=== PATIENT | male | born 1980 | race Caucasian/White ===

== ENCOUNTER 2021-07-18 13:15 | Emergency (ER) | payer OTHER ==
[2021-07-18 13:30] VITALS: TEMP 98.4
[2021-07-18] MEDS ORDERED: KETOROLAC 15 MG/ML 1 ML VIAL IVP STA (13:56)
[2021-07-18] MEDS ORDERED: diphenhydrAMINE 50 MG/ML 1 ML VIAL IVP STA (13:56)
[2021-07-18] MEDS ORDERED: SODIUM CHLORIDE 0.9% 1,000 ML IV STA ×2 (13:56→15:09)
[2021-07-18] MEDS ORDERED: METOCLOPRAMIDE 5 MG/ML 2 ML VIAL IVP STA (13:56)
[2021-07-18 14:28] LABS: Basophils % (A) 1 %; Eosinophils # (A) 0.1 k/uL (0-0.7); Eosinophils % (A) 1 %; HCT 47.1 % (39.0-53.0); HGB 15.9 gm/dL (13.0-17.5); Lymphocytes # (A) 1.6 k/uL (1.0-4.8); Lymphocytes % (A) 18 %; MCH 34.8 pg (25.0-35.0); MCHC 33.8 g/dL (31.0-37.0); MCV 102.8 fL (80.0-100.0); Mean Platelet Volume 7.2; Monocytes # (A) 0.4 k/uL (0-1.0); Monocytes % (A) 4 %; Neutrophils # (A) 6.7 k/uL (1.3-7.7); Neutrophils % (A) 75 %; Platelet Count 319 k/uL (150-450); RBC 4.58 m/uL (4.30-5.90); RDW 11.5 % (11.5-15.5); WBC 8.9 k/uL (3.8-10.6)
[2021-07-18 14:43] VITALS: RESP 18
[2021-07-18 14:43] LABS: Appearance,Urine Clear (Clear); Bilirubin,Urine Negative (Negative); Blood,Urine Negative (Negative); Color,Urine Yellow; Glucose,Urine (UA) Negative (Negative); Hyaline Casts,Urine 3 /lpf (0-2); Ketones,Urine Trace (Negative); Leukocyte Esterase,Urine Negative (Negative); Mucus,Urine Many /hpf; Nitrite,Urine Negative (Negative); Protein,Urine 1+ (Negative); RBC,Urine <1 /hpf (0-5); Specific Gravity,Urine 1.035 (1.001-1.035); Squamous Epithelial Cell,Urine <1 /hpf (0-4); Urobilinogen,Urine <2.0 mg/dL (<2.0); WBC,Urine 1 /hpf (0-5)
[2021-07-18 14:51] LABS: INR 0.9 (<1.2); Partial Thromboplastin Time 25.3 sec (22.0-30.0); Prothrombin Time 10.1 sec (9.0-12.0)
[2021-07-18 14:52] LABS: ALT 66 U/L (4-49); AST 60 U/L (17-59); African American GFR (CKD) >90 (>60 ml/min/1.73 sqM); Albumin 4.7 g/dL (3.5-5.0); Alkaline Phosphatase 93 U/L (38-126); Amylase 46 U/L (30-110); Anion Gap 11 mmol/L; Blood Urea Nitrogen 18 mg/dL (9-20); Carbon Dioxide 26 mmol/L (22-30); Chloride 100 mmol/L (98-107); Glucose 145 mg/dL (74-99); Lipase 75 U/L (23-300); Non-African American GFR(CKD) >90 (>60 ml/min/1.73 sqM); Potassium 4.2 mmol/L (3.5-5.1); Sodium 137 mmol/L (137-145); Total Bilirubin 1.1 mg/dL (0.2-1.3); Total Protein 8.3 g/dL (6.3-8.2)
--- NOTE | 2021-07-18 15:03 | CT ---
EXAMINATION TYPE: CT abdomen pelvis w con DATE OF EXAM: 07/18/2021 COMPARISON: None. HISTORY: Abdominal pain umbilical for one month increasing in severity last [address] DLP: 1612.4 mGycm, Automated Exposure Control for Dose Reduction was Utilized. CONTRAST: CT scan of the abdomen and pelvis is performed without oral and with IV Contrast, patient injected wi th 100 ml mL of Isovue 300. FINDINGS: LUNG BASES: No significant abnormality is appreciated. LIVER/GB: Gallstone in gallbladder neck could reflect small calcified gallstone or larger soft tissue density stone with central calcification. Gallbladder has some distended margins. No abnormal wall t hickening or surrounding inflammatory change. The liver is heterogeneously hypodense suggesting diffu se fatty infiltration. No abnormal biliary dilatation. PANCREAS: No significant abnormality is seen. SPLEEN: No significant abnormality is seen. ADRENALS: No significant abnormality is seen. KIDNEYS: Symmetric cortical medullary uptake and excretion without hydronephrosis seen bilaterally. BOWEL: Normal-appearing appendix from cecum. Suboptimal evaluation bowel without enteric contrast. Mi ld wall thickening in the sigmoid colon is present in product of poor distention as there is no surro unding inflammatory change noted. PROSTATE/SEMINAL VESICLES: No gross abnormality seen. LYMPH NODES: No greater than 1cm abdominal or pelvic lymph nodes are appreciated. OSSEOUS STRUCTURES: Moderate disc space narrowing L5-S1 level with vacuum disc phenomenon. Slight sco liotic curvature on coronal images in the thoracolumbar spine. OTHER: No significant additional abnormality is seen. IMPRESSION: Gallstone in gallbladder neck without convincing CT evidence for acute cholecystitis. 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 No acute fin dings otherwise seen.
[2021-07-18] MEDS ORDERED: methocarbamoL 750 MG TAB PO STA (15:41)
--- NOTE | 2021-07-18 15:52 | ED ---
General Adult HPI - General Chief complaint: Abdominal Pain Stated complaint: Abd Pain Time Seen by Provider: 07/18/21 13:32 Source: patient, RN notes reviewed, old records reviewed Mode of arrival: ambulatory Limitations: no limitations - History of Present Illness Initial comments: Patient is a 40-year-old male with no significant past medical history who presents emergency Department complaining of acute on chronic abdominal pain. He has been dealing with this abdominal pain for the last 2-3 weeks. He describes it as sharp and achy located primarily in his bladder in the suprapubic region. States it began radiating towards his navel this week. Is worse with certain movements and certain positions but is not certain which ones. He denies any distinct radiation towards his testicles but states he has a strange sensation and sometimes. Is unable to explain this further. Denies any acute severe pain in his testicles. Denies any dysuria, hematuria. Denies any history of STDs or concern for STDs at this time. Denies any penile disch arge. Denies any nausea, vomiting, change in bowel habits. Denies any diarrhea or bloody bowel movements. He has no chest pain, shortness of breath, fevers, chills, sick contacts. Patient otherwise has no acute complaints. He is uncertain what is causing his current symptoms. He has not been evaluated for them before. Patient states that he decided to come to the doctor's today because they've been persistent and he can no longer bear them at work with this heavy items. Denies any obvious signs of hernia. He states he has not been eating or drinking much over the last few days due to the worsening pain. - Related Data Previous Rx's Medication Instructions Recorded Methocarbamol [Robaxin-750] 1,500 mg PO TID PRN 7 Days #42 07/18/21 tablet Allergies Allergy/AdvReac Type Severity Reaction Status Date / Time No Known Allergies Allergy Verified 07/18/21 15:30 Review of Systems ROS Statement: Those systems with pertinent positive or pertinent negative responses have been documented in the HPI. Review of Systems: CONST: Denies fever EYES: Denies blurry vision ENT: Denies nasal congestion C/V: Denies Chest pain RESP: Denies shortness of breath GI: Endorses abdominal pain : Denies dysuria SKIN: Denies rash. MSK: Denies joint pain. NEURO: Denies headache ROS Other: All systems not noted in ROS Statement are negative. Past Medical History Past Medical History: Hypertension History of Any Multi-Drug Resistant Organisms: None Reported Past Surgical History: No Surgical Hx Reported Past Psychological History: No Psychological Hx Reported Smoking Status: Never smoker Past Alcohol Use History: Occasional Past Drug Use History: Marijuana General Exam - General Exam Comments Initial Comments: General: Appears in no acute distress. HEAD: Normal with no signs of head trauma. EYES: PERRLA, EOMI, conjunctiva normal, no discharge. ENT: Hearing grossly intact, normal oropharynx. RESPIRATORY: Clear breath sounds bilaterally. No wheezes, rales, or rhonchi. C/V: Borderline tachycardia. S1 and S2 auscultated. Peripheral pulses are 2+ intact. ABD: Abdomen soft, nondistended. Patient is minimally tender to palpation in the left lower quadrant and suprapubic region. Is very mild CVA tenderness to percussion over the left side. No rebound tenderness. No guarding. : Performed in the presence of a staff member. Patient is no penile discharge, no penile tenderness to palpation. No scrotal or testicular tenderness to palpation or skin changes. No hernias palpated. Unremarkable exam. EXT: Normal range of motion, no obvious deformity SKIN: No rashes or lesions observed on exposed skin. NEURO: Alert and oriented 4. Limitations: no limitations Course Vital Signs 07/18/21 07/18/21 07/18/21 13:27 14:42 16:42 Temperature 98.4 F Pulse Rate 111 H 91 89 Respiratory 19 18 18 Rate Blood Pressure 170/99 164/103 155/103 O2 Sat by Pulse 97 99 97 Oximetry Medical Decision Making - Medical Decision Making This on the patient's presentation and physical exam, I'm concerned for possible acute intra-abdominal pathology for this patient. Exam is relatively unremarkable, however subjectively he is expressing a great deal of pain. Therefore we will obtain abdominal laboratory studies as well as urinary studies pits CT abdomen and pelvis with contrast will be ordered. He refuses narcotics at this time, so he will be treated with IV Toradol as well as a 1 L fluid santos mike. Patient was in agreement this plan. Laboratory studies were remarkable for normal electrolytes. Patient has mildly dehydrated, as evident by a slightly elevated lactic acid of 2.2 which makes sense as the patient has not been eating or drinking much less 1-2 days. He has trace ketones in his urine. No signs of UTI or infection. The remainder of his labs are unremarkable. Imaging showed no acute intra-abdominal process. There is a gallstone in the gallbladder, however no signs of cholecystitis. On reevaluation, patient is having continued mild pain. We discussed the findings of his labs and imaging. I recommended that we continued fluid hydrate him. I did offer him ultrasounds of the bladder as well as scrotum just to rule out the possibility of renal process or undetected nephrolithiasis and hydronephrosis. He was in agreement this plan. We will also obtain a scrotal u ltrasound, as he is having strange sensations, despite low suspicion, we would like to rule out torsion. We will repeat the lactic acid to ensure that it returns to normal following fluid hydration. He was in agreement this plan. Patient's ultrasounds were normal and showed no acute process. Repeat lactate was within normal limits. On reevaluation come patient's pain is improved, ho wever still present. I informed him that I believe it is safe for him to be discharged home but would like him to follow up with either GI specialist or primary care physician, which she was in agreement. He will be given contact information for them. Patient was therefore discharged home. I will provide the patient with a prescription for Robaxin. I instructed the patient to follow up with their PCP in the next 3 days. I provided contact information for follow up with Dr. Cordero of gastroenterology, Dr. Lee of [facility] who is [facility]. I explained that the patient should return to the emergency department if they experience any worsening symptoms. Strict return precautions were discussed with the patient. The patient expressed understanding of these instructions. I answered all questions that the patient had. The patient was discharged home in fair condition with their prescriptions and follow up information. - Lab Data Result diagrams: 07/18/21 14:03 07/18/21 14:03 Lab Results 07/18/21 07/18/21 07/18/21 Range/Units 14:03 14:03 14:03 WBC 8.9 (3.8-10.6) k/uL RBC 4.58 (4.30-5.90) m/uL Hgb 15.9 (13.0-17.5) gm/dL Hct 47.1 (39.0-53.0) % MCV 102.8 H (80.0-100.0) fL MCH 34.8 (25.0-35.0) pg MCHC 33.8 (31.0-37.0) g/dL RDW 11.5 (11.5-15.5) % Plt Count 319 (150-450) k/uL MPV 7.2 Neutrophils % 75 % Lymphocytes % 18 % Monocytes % 4 % Eosinophils % 1 % Basophils % 1 % Neutrophils # 6.7 (1.3-7.7) k/uL Lymphocytes # 1.6 (1.0-4.8) k/uL Monocytes # 0.4 (0-1.0) k/uL Eosinophils # 0.1 (0-0.7) k/uL Basophils # 0.0 (0-0.2) k/uL PT 10.1 (9.0-12.0) sec INR 0.9 (<1.2) APTT 25.3 (22.0-30.0) sec Sodium (137-145) mmol/L Potassium (3.5-5.1) mmol/L Chloride (98-107) mmol/L Carbon Dioxide (22-30) mmol/L Anion Gap mmol/L BUN (9-20) mg/dL Creatinine (0.66-1.25) mg/dL Est GFR (CKD-EPI)AfAm (>60 ml/min/1.73 sqM) Est GFR (CKD-EPI)NonAf (>60 ml/min/1.73 sqM) Glucose (74-99) mg/dL Lactic Ac Sepsis Rflx Plasma Lactic Acid Wai (0.7-2.0) mmol/L Calcium (8.4-10.2) mg/dL Total Bilirubin (0.2-1.3) mg/dL AST (17-59) U/L ALT (4-49) U/L Alkaline Phosphatase (38-126) U/L Total Protein (6.3-8.2) g/dL Albumin (3.5-5.0) g/dL Amylase (30-110) U/L Lipase (23-300) U/L Urine Color Yellow Urine Appearance Clear (Clear) Urine pH 6.0 (5.0-8.0) Ur Specific [place] 1.035 (1.001-1.035) Urine Protein 1+ H (Negative) Urine Glucose (UA) Negative (Negative) Urine Ketones Trace H (Negative) Urine Blood Negative (Negative) Urine Nitrite Negative (Negative) Urine Bilirubin Negative (Negative) Urine Urobilinogen <2.0 (<2.0) mg/dL Ur Leukocyte Esterase Negative (Negative) Urine RBC <1 (0-5) /hpf Urine WBC 1 (0-5) /hpf Ur Squamous Epith Cells <1 (0-4) /hpf Hyaline Casts 3 H (0-2) /lpf Urine Mucus Many H (None) /hpf 07/18/21 07/18/21 07/18/21 Range/Units 14:03 14:03 14:58 WBC (3.8-10.6) k/uL RBC (4.30-5.90) m/uL Hgb (13.0-17.5) gm/dL Hct (39.0-53.0) % MCV (80.0-100.0) fL MCH (25.0-35.0) pg MCHC (31.0-37.0) g/dL RDW (11.5-15.5) % Plt Count (150-450) k/uL MPV Neutrophils % % Lymphocytes % % Monocytes % % Eosinophils % % Basophils % % Neutrophils # (1.3-7.7) k/uL Lymphocytes # (1.0-4.8) k/uL Monocytes # (0-1.0) k/uL Eosinophils # (0-0.7) k/uL Basophils # (0-0.2) k/uL PT (9.0-12.0) sec INR (<1.2) APTT (22.0-30.0) sec Sodium 137 (137-145) mmol/L Potassium 4.2 (3.5-5.1) mmol/L Chloride 100 (98-107) mmol/L Carbon Dioxide 26 (22-30) mmol/L Anion Gap 11 mmol/L BUN 18 (9-20) mg/dL Creatinine 0.57 L (0.66-1.25) mg/dL Est GFR (CKD-EPI)AfAm >90 (>60 ml/min/1.73 sqM) Est GFR (CKD-EPI)NonAf >90 (>60 ml/min/1.73 sqM) Glucose 145 H (74-99) mg/dL Lactic Ac Sepsis Rflx Y Plasma Lactic Acid Wai 2.2 H* (0.7-2.0) mmol/L Calcium 10.0 (8.4-10.2) mg/dL Total Bilirubin 1.1 (0.2-1.3) mg/dL AST 60 H (17-59) U/L ALT 66 H (4-49) U/L Alkaline Phosphatase 93 (38-126) U/L Total Protein 8.3 H (6.3-8.2) g/dL Albumin 4.7 (3.5-5.0) g/dL Amylase 46 (30-110) U/L Lipase 75 (23-300) U/L Urine Color Urine Appearance (Clear) Urine pH (5.0-8.0) Ur Specific [place] (1.001-1.035) Urine Protein (Negative) Urine Glucose (UA) (Negative) Urine Ketones (Negative) Urine Blood (Negative) Urine Nitrite (Negative) Urine Bilirubin (Negative) Urine Urobilinogen (<2.0) mg/dL Ur Leukocyte Esterase (Negative) Urine RBC (0-5) /hpf Urine WBC (0-5) /hpf Ur Squamous Epith Cells (0-4) /hpf Hyaline Casts (0-2) /lpf Urine Mucus (None) /hpf 07/18/21 Range/Units 15:52 WBC (3.8-10.6) k/uL RBC (4.30-5.90) m/uL Hgb (13.0-17.5) gm/dL Hct (39.0-53.0) % MCV (80.0-100.0) fL MCH (25.0-35.0) pg MCHC (31.0-37.0) g/dL RDW (11.5-15.5) % Plt Count (150-450) k/uL MPV Neutrophils % % Lymphocytes % % Monocytes % % Eosinophils % % Basophils % % Neutrophils # (1.3-7.7) k/uL Lymphocytes # (1.0-4.8) k/uL Monocytes # (0-1.0) k/uL Eosinophils # (0-0.7) k/uL Basophils # (0-0.2) k/uL PT (9.0-12.0) sec INR (<1.2) APTT (22.0-30.0) sec Sodium (137-145) mmol/L Potassium (3.5-5.1) mmol/L Chloride (98-107) mmol/L Carbon Dioxide (22-30) mmol/L Anion Gap mmol/L BUN (9-20) mg/dL Creatinine (0.66-1.25) mg/dL Est GFR (CKD-EPI)AfAm (>60 ml/min/1.73 sqM) Est GFR (CKD-EPI)NonAf (>60 ml/min/1.73 sqM) Glucose (74-99) mg/dL Lactic Ac Sepsis Rflx Plasma Lactic Acid Wai 0.8 (0.7-2.0) mmol/L Calcium (8.4-10.2) mg/dL Total Bilirubin (0.2-1.3) mg/dL AST (17-59) U/L ALT (4-49) U/L Alkaline Phosphatase (38-126) U/L Total Protein (6.3-8.2) g/dL Albumin (3.5-5.0) g/dL Amylase (30-110) U/L Lipase (23-300) U/L Urine Color Urine Appearance (Clear) Urine pH (5.0-8.0) Ur Specific [place] (1.001-1.035) Urine Protein (Negative) Urine Glucose (UA) (Negative) Urine Ketones (Negative) Urine Blood (Negative) Urine Nitrite (Negative) Urine Bilirubin (Negative) Urine Urobilinogen (<2.0) mg/dL Ur Leukocyte Esterase (Negative) Urine RBC (0-5) /hpf Urine WBC (0-5) /hpf Ur Squamous Epith Cells (0-4) /hpf Hyaline Casts (0-2) /lpf Urine Mucus (None) /hpf Disposition Clinical Impression: Dehydration, Abdominal pain of unknown etiology Disposition: HOME SELF-CARE Condition: Fair Instructions (If sedation given, give patient instructions): Abdominal Pain (ED) Prescriptions: Methocarbamol [Robaxin-750] 1,500 mg PO TID PRN 7 Days #42 tablet PRN Reason: Pain Is patient prescribed a controlled substance at d/c from ED?: No Referrals: None,Stated [Primary Care Provider] - 1-2 days Wandy Lee DO [Doctor of Osteopathic Medicine] - 1-2 days Tanika Cordero MD [STAFF PHYSICIAN] - 1-2 days
[2021-07-18 16:46] VITALS: BP 155/103; PULSE 89
--- NOTE | 2021-07-18 16:50 | US ---
EXAMINATION TYPE: US renals and bladder DATE OF EXAM: 07/18/2021 COMPARISON: NONE CLINICAL HISTORY: bladder and left flank pain, eval for hydronephrosis. lt flank pain EXAM MEASUREMENTS: Right Kidney: 11.0 x 5.1 x 5.8 cm Left Kidney: 11.5 x 4.6 x 6.5 cm Right Kidney: No hydronephrosis or masses seen Left Kidney: No hydronephrosis or masses seen Bladder: wnl There is no evidence for hydronephrosis at this point in time. On scanning Right kidney adjacent porsche er is markedly heterogeneously hyperechoic consistent with diffuse fatty infiltration. No nephrolithi asis is seen. No masses are identified on images saved. The urinary bladder is satisfactorily diste nded. Bilateral ureteral jets are not seen. IMPRESSION: No hydronephrosis is noted bilaterally.
--- NOTE | 2021-07-18 17:03 | US ---
EXAMINATION TYPE: US scrotum with doppler. Grayscale and color Doppler Duplex imaging performed of paulino pedraza scrotum. DATE OF EXAM: 07/18/2021 COMPARISON: NONE CLINICAL HISTORY: evaluate for torsion. abd pain that radiates to EXAM MEASUREMENTS: TESTICLES: Right Testicle: 4.3 x 3.4 x 2.5 cm Left Testicle: 3.5 x 2.8 x 2.3 cm EPIDIDYMIS HEAD: Right Epididymis: 1.5cm Left Epididymis: 1.1cm Doppler performed to assess for testicular vascularity; good bilateral color flow and waveforms are s een. Presence of hydroceles: no Presence of varicoceles: possible on the left, did not appear to increase in size with valsalva Comparison view show symmetric blood flow to both testicles IMPRESSION: There is symmetric blood flow to both testicles documented.
== END 2021-07-18 17:51 | disposition home or self-care (01) ==
LOC: EC 13:15
DX: E86.0 Dehydration (principal); R10.30 Lower abdominal pain, unspecified; I10 Essential (primary) hypertension; F12.90 Cannabis use, unspecified, uncomplicated
CPT/HCPCS: 36415; 80053; 82150; 83605; 83690; 85025; 85610; 85730; 81001; 93975; 76870; 76770; 74177; 96374; 96375 ×2; 96361 ×2; 99284; J1200; J2765; J1885; Q9967